=== PATIENT | male | born 1955 | race Caucasian/White ===

== ENCOUNTER → 2016-08-03 | Outpatient (CLI) | payer OTHER ==
[~2016-08-03] MED LIST: BYSTOLIC; BYSTOLIC10 MG PO; FLOMAX0.4 M1 PO; KEFLEX PO; NAPROXEN PO
--- NOTE | ~2016-08-03 | CR58 ---
[facility] A Service of [facility] & [facility] RADIOLOGY TEXT RESULTS PATIENT: TAHMINA DAVILA JR LOCATION: [facility] : 59 UNIT #: [id number] AGE: [address]: ABEL ARGUELLES APRN SEX: M ORDER DR: [id number] [facility] [address] [place], [place] [address] [id number] O MR#: [id number] Acc #: [id number] NAME: TAHMINA DAVILA : 1955 SEX: M STUDY DATE/TIME: 08/03/2016 14:32 UNIT: [facility] ROOM: STUDY DESCRIPTION: CR Cervical Spine 2 or 3 Views Attending Physician: Abel Arguelles A.P.R.N. Referring Physician: Abel Arguelles A.P.R.N. Ordering Physician: Abel Arguelles A.P.R.N. Primary Care Physician: Abel Arguelles A.P.R.N. MEDICAL IMAGING REPORT This report is preliminary unless electronic signature is present EXAM Cervical spine series HISTORY Spinal stenosis. Previous fusion. TECHNIQUE 3 views of the cervical spine were obtained. FINDINGS Since the previous examination, the bone plate from C5-C7 has been removed and a new ventral bone plate is seen across a fusion from C3-C5. Alignment and position is satisfactory. Anterolisthesis across C2-3 is again noted and unchanged from previous exam. IMPRESSION Satisfactory postoperative alignment and position following extension of the fusion up to C3. No hardware complications noted. Dictated by... Jann Donald M.D. THIS IS AN ELECTRONICALLY VERIFIED REPORT Jann Donald M.D. at 08/03/2016 10:22 PM RLF/dave TD: 08/03/2016 19:21 JOB #: [id number] MEDICAL IMAGING REPORT Page 1 of 1 COPY
== END | disposition home or self-care (01) ==
LOC: CRAD 14:11
DX: M48.02 Spinal stenosis, cervical region (principal); Z98.1 Arthrodesis status
CPT/HCPCS: 72040